=== PATIENT | female | born 1965 | race Hispanic/Latino ===

== ENCOUNTER 2018-03-03 11:00 | Outpatient (CLI) | payer MEDICAID | END 2018-03-03 11:01 | disposition home or self-care (01) | LOC: SLR 11:00 | PROVIDERS: ATTEND Otolaryngology | DX: G47.33 Obstructive sleep apnea (adult) (pediatric) (principal) | CPT/HCPCS: 95810 ==

== ENCOUNTER 2018-11-03 06:34 | Day surgery (SDC) | payer MEDICAID ==
--- NOTE | 2018-11-03 07:25 | Anesthesia Consultation ---
Anesthesia Consult and Med Hx Date of service: 11/03/18 - Airway Anesthetic Teeth Evaluation: Poor (multiple missing teeth) ROM Head & Neck: Adequate Mental/Hyoid Distance: Adequate Mallampati Class: Class III Intubation Access Assessment: Possibly Difficult - Pre-Operative Health Status ASA Pre-Surgery Classification: ASA3 Proposed Anesthetic Plan: MAC - Pulmonary Hx Smoking: Yes (former smoker 10 p/year history) Hx Respiratory Symptoms: Yes (chronic bronchitis) Hx Sleep Apnea: Yes - Cardiovascular System Hx Hypertension: Yes - Central Nervous System Hx Back Pain: Yes - Other Systems Hx Obesity: Yes (BMI 71.1)
--- NOTE | 2018-11-03 07:26 | Anesthesia Day of Surgery ---
Anesthesia Day of Surgery - Day of Surgery Patient Examined: Yes Patient H&P Reviewed: Yes Patient is NPO: Yes
[2018-11-03] MEDS ORDERED: WATER FOR IRRIG STERILE IR ONE (07:31)
[2018-11-03] MEDS ORDERED: NACL 0.9% 1000 ML 1,000 ML IV SCH (08:00)
[2018-11-03] MEDS ORDERED: DIPRIVAN 10 MG/ML IV ONE (08:07)
[2018-11-03 08:59] VITALS: BP 114/72
--- NOTE | 2018-11-03 11:16 | Operative Report ---
PREOPERATIVE DIAGNOSIS: Morbid obesity. POSTOPERATIVE DIAGNOSIS: Retained food products. PROCEDURE: Incomplete EGD. ANESTHESIA: MAC. BLEEDING: None. SPECIMENS: None. COMPLICATIONS: Retained food products obscuring view and causing inability for complete EGD. INDICATIONS: The patient is a 53-year-old female with history of morbid obesity. She is here for a preoperative EGD in preparation for a sleeve. Informed consent was obtained. DESCRIPTION OF PROCEDURE: The patient was brought to the GI suite where she was placed in the left lateral decubitus position and underwent MAC anesthesia. A bite block was placed and a timeout was called. A standard adult Olympus endoscope was inserted through the oropharynx, down the esophagus, into the stomach. On entry, there was a significant amount of retained food products. There was a significant amount of food products along the lesser and greater curve of the stomach as well as the fundus and completely obscuring the pylorus. I was not able to intubate the pylorus. Due to the obstructed view, the air was desufflated and the gastroscope was removed. The patient tolerated the procedure with no immediate complications and then transferred to the PACU in stable condition. FINDINGS: Incomplete EGD due to obstructed view from retained food products. The patient will have to be strict n.p.o. after midnight and adhere to clear liquid diet 2 days prior in order to proceed with surgery. JOB# [id number] YUMIKO/TERRELL MAYNARD
== END 2018-11-03 06:35 | disposition home or self-care (01) ==
LOC: GIO 06:34
PROVIDERS: ATTEND Specialist
DX: K30 Functional dyspepsia (principal); E66.01 Morbid (severe) obesity due to excess calories; I10 Essential (primary) hypertension; G47.30 Sleep apnea, unspecified; Z68.45 Body mass index [BMI] 70 or greater, adult; Z98.51 Tubal ligation status; Z98.890 Other specified postprocedural states; Z88.2 Allergy status to sulfonamides; Z91.040 Latex allergy status; Z79.899 Other long term (current) drug therapy; Z87.891 Personal history of nicotine dependence; Z88.8 Allergy status to other drugs, medicaments and biological substances
CPT/HCPCS: 43235; J2704; J7030

== ENCOUNTER 2018-12-01 06:34 | Day surgery (SDC) | payer MEDICAID ==
--- NOTE | 2018-12-01 08:05 | Anesthesia Day of Surgery ---
Anesthesia Day of Surgery - Day of Surgery Patient Examined: Yes Patient H&P Reviewed: Yes Patient is NPO: Yes
--- NOTE | 2018-12-01 08:10 | Anesthesia Consultation ---
Anesthesia Consult and Med Hx Date of service: 12/01/18 - Airway Anesthetic Teeth Evaluation: Good ROM Head & Neck: Adequate Mental/Hyoid Distance: Adequate Mallampati Class: Class I Intubation Access Assessment: Good - Pre-Operative Health Status ASA Pre-Surgery Classification: ASA3 Proposed Anesthetic Plan: MAC - Pulmonary Hx Smoking: Yes (former smoker 10 p/year history) Hx Respiratory Symptoms: Yes (chronic bronchitis) Hx Sleep Apnea: Yes - Cardiovascular System Hx Hypertension: Yes Hx Coronary Artery Disease: No (NST 3 mos ago and OK per pt) - Central Nervous System Hx Back Pain: Yes Hx Psychiatric Problems: Yes (Dysthymic D/O) - Gastrointestinal Hx Ulcer: No (Crohn's Disease) - Hematic Hx Anemia: Yes - Other Systems Hx Obesity: Yes (BMI 71.1)
[2018-12-01] MEDS ORDERED: VERSED ONE (08:42)
[2018-12-01] MEDS ORDERED: DIPRIVAN 10 MG/ML IV ONE (08:43)
[2018-12-01] MEDS ORDERED: NACL 0.9% 1000 ML 1,000 ML IV SCH (09:00)
[2018-12-01 11:38] VITALS: BP 122/76
--- NOTE | 2018-12-01 13:23 | Operative Report ---
SURGEON: Darnell Briseno M.D. HEATER OPERATOR: Alessio Blount MD PREOPERATIVE DIAGNOSIS: Morbid obesity. POSTOPERATIVE DIAGNOSES: 1. Small hiatal hernia, 3 cm. 2. Bilious reflux. PROCEDURE: Esophagogastroduodenoscopy. ANESTHESIA: MAC. COMPLICATIONS: None. SPECIMENS: None. BLEEDING: None. INDICATIONS: The patient is a 53-year-old female with a history of morbid obesity. She is here for preoperative EGD in preparation for her weight loss surgery. Informed consent was obtained. DESCRIPTION OF PROCEDURE: The patient was brought to the GI suite where she was placed in the left lateral decubitus position and underwent MAC anesthesia. A bite block was placed and a timeout was called. A standard adult gastroscope was inserted into the oropharynx, down the esophagus, into the stomach. Upon entry, there was noted bilious reflux up to the incisura. On intubation of the pylorus, there was again bilious reflux or bile seen. No other abnormalities. On retroflexion view, she was noted to have a small hiatal hernia approximately 2-3 cm in size. There were no other abnormalities. With that, the air was suctioned out. The gastroscope was removed. The patient tolerated the procedure with no immediate complications and was transferred to the PACU in stable condition. JOB# [id number] YUMIKO/TERRELL
== END 2018-12-01 06:35 | disposition home or self-care (01) ==
LOC: GIO 06:34
PROVIDERS: ATTEND Specialist
DX: K21.9 Gastro-esophageal reflux disease without esophagitis (principal); K44.9 Diaphragmatic hernia without obstruction or gangrene; K30 Functional dyspepsia; E66.01 Morbid (severe) obesity due to excess calories; I25.10 Atherosclerotic heart disease of native coronary artery without angina pectoris; G47.30 Sleep apnea, unspecified; Z88.2 Allergy status to sulfonamides; Z91.040 Latex allergy status; Z98.51 Tubal ligation status; Z79.899 Other long term (current) drug therapy; Z87.891 Personal history of nicotine dependence; Z86.2 Personal history of diseases of the blood and blood-forming organs and certain disorders involving the immune mechanism; Z98.890 Other specified postprocedural states
CPT/HCPCS: 43235; J2250; J2704; J7030

== ENCOUNTER 2019-04-07 11:00 | Outpatient (CLI) | payer MEDICARE | END 2019-04-07 11:01 | disposition home or self-care (01) | LOC: SLR 11:00 | PROVIDERS: ATTEND Otolaryngology | DX: G47.30 Sleep apnea, unspecified (principal) | CPT/HCPCS: 95810 ==

== ENCOUNTER 2019-04-12 11:00 | Outpatient (CLI) | payer MEDICARE | END 2019-04-12 11:01 | disposition home or self-care (01) | LOC: SLR 11:00 | PROVIDERS: ATTEND Otolaryngology | DX: G47.33 Obstructive sleep apnea (adult) (pediatric) (principal); I10 Essential (primary) hypertension; Z87.891 Personal history of nicotine dependence; Z98.51 Tubal ligation status | CPT/HCPCS: 95811 ==

== ENCOUNTER 2019-05-07 21:16 | Emergency (ER) | payer MEDICARE ==
[2019-05-07 21:51] VITALS: BP 157/95
--- NOTE | 2019-05-07 21:59 | Event Note ---
ED Screening Note Date of service: 05/07/19 ED Screening Note: This initial assessment/diagnostic orders/clinical plan/treatment(s) is/are subject to change based on patients health status, clinical progression and re- assessment by fellow clinical providers in the ED. Further treatment and workup at subsequent clinical providers discretion. Patient/guardian urged not to elope from the ED as their condition may be serious if not clinically assessed and managed. Initial orders include: 54yo WF states that she has R knee pain x1 week.
[2019-05-07] MEDS ORDERED: CYCLOBENZAPRINE 10 MG TAB PO ONE (23:16)
--- NOTE | 2019-05-07 23:47 | Emergency Department Report ---
ED Extremity Problem HPI - General Chief complaint: Extremity Injury, Lower Stated complaint: RT LEG DIFF WALKING W/LUMP Time Seen by Provider: 05/07/19 23:11 Source: patient Mode of arrival: Ambulatory Limitations: No Limitations - History of Present Illness Initial comments: Patient is a 54-year-old female presents emergency room with complaints of right lower extremity edema that began a week ago. She states that she noticed a knot to the right calf that began 2 days ago. Patient states that she has pain in her calf and it feels like a tightness and spasming. She states it feels like a "charley horse." She denies any fall or injury. She denies any increased warmth, drainage, erythema. She denies ever having this in the past. She has a past medical history of hypertension. She states she had a gastric sleeve performed 3 weeks ago. She states she has an allergy to latex and sulfa. - Related Data Home Medications Medication Instructions Recorded Confirmed Last Taken Lisinopril 5 mg PO DAILY 11/03/18 12/01/18 11/30/18 Potassium 1 tab PO DAILY 12/01/18 12/01/18 11/30/18 Previous Rx's Medication Instructions Recorded Last Taken Type Apixaban [Eliquis] 10 mg PO BID #12 tablet 05/08/19 Unknown Rx HYDROcodone/APAP 5-325 [[place] 1 each PO Q6HR PRN #12 tablet 05/08/19 Unknown Rx 5/325] Allergies Allergy/AdvReac Type Severity Reaction Status Date / Time latex AdvReac Rash Verified 11/03/18 07:33 Sulfa (Sulfonamide AdvReac Rash Verified 11/03/18 07:33 Antibiotics) ED Review of Systems ROS: Stated complaint: RT LEG DIFF WALKING W/LUMP Other details as noted in HPI Comment: All other systems reviewed and negative ED Past Medical Hx - Past Medical History Previous Medical History?: Yes Hx Hypertension: Yes Additional medical history: Obesity - Surgical History Past Surgical History?: No Additional Surgical History: Gastric sleeve, Tubal Ligation - Social History Smoking Status: Former Smoker Substance Use Type: Alcohol - Medications Home Medications: Home Medications Medication Instructions Recorded Confirmed Last Taken Type Lisinopril 5 mg PO DAILY 11/03/18 12/01/18 11/30/18 History Potassium 1 tab PO DAILY 12/01/18 12/01/18 11/30/18 History Apixaban [Eliquis] 10 mg PO BID #12 tablet 05/08/19 Unknown Rx HYDROcodone/APAP 5-325 [[place] 1 each PO Q6HR PRN #12 tablet 05/08/19 Unknown Rx 5/325] ED Physical Exam - General Limitations: No Limitations General appearance: alert, in no apparent distress - Head Head exam: Present: atraumatic, normocephalic - Eye Eye exam: Present: normal appearance - ENT ENT exam: Present: mucous membranes moist - Extremities Exam Extremities exam: Present: other (edema present to the RLE from below the knee to the ankle, there is increased swelling present on the right medial calf, TTP of the right calf, neurovascularly intact, FROM of the RLE, no increased warmth, no drainage, no erythema) - Neurological Exam Neurological exam: Present: alert, oriented X3 - Psychiatric Psychiatric exam: Present: normal affect, normal mood - Skin Skin exam: Present: warm, dry, intact ED Course Vital Signs 05/07/19 21:33 Temperature 97.9 F Pulse Rate 87 Respiratory 16 Rate Blood Pressure 157/95 O2 Sat by Pulse 95 Oximetry ED Medical Decision Making - Lab Data Result diagrams: 05/07/19 23:26 05/07/19 23:26 Lab Results 05/07/19 05/07/19 05/07/19 Range/Units 23:26 23:26 23:26 WBC 7.0 (4.5-11.0) K/mm3 RBC 4.64 (3.65-5.03) M/mm3 Hgb 13.6 (10.1-14.3) gm/dl Hct 42.2 (30.3-42.9) % MCV 91 (79-97) fl MCH 29 (28-32) pg MCHC 32 (30-34) % RDW 15.3 H (13.2-15.2) % Plt Count 268 (140-440) K/mm3 Lymph % (Auto) 25.7 (13.4-35.0) % Nash % (Auto) 11.3 H (0.0-7.3) % Eos % (Auto) 5.1 H (0.0-4.3) % Baso % (Auto) 0.4 (0.0-1.8) % Lymph # 1.8 (1.2-5.4) K/mm3 Nash # 0.8 (0.0-0.8) K/mm3 Eos # 0.4 (0.0-0.4) K/mm3 Baso # 0.0 (0.0-0.1) K/mm3 Seg Neutrophils % 57.5 (40.0-70.0) % Seg Neutrophils # 4.0 (1.8-7.7) K/mm3 PT 12.9 (12.2-14.9) Sec. INR 0.98 (0.87-1.13) APTT 29.0 (24.2-36.6) Sec. Sodium 140 (137-145) mmol/L Potassium 4.7 (3.6-5.0) mmol/L Chloride 96.8 L (98-107) mmol/L Carbon Dioxide 25 (22-30) mmol/L Anion Gap 23 mmol/L BUN 51 H (7-17) mg/dL Creatinine 2.6 H (0.7-1.2) mg/dL Estimated GFR 19 ml/min BUN/Creatinine Ratio 20 % Glucose 103 H (65-100) mg/dL Calcium 10.0 (8.4-10.2) mg/dL - Medical Decision Making Patient is a 54-year-old female presents emergency room with complaints of right lower extremity edema that began a week ago. She states that she noticed a knot to the right calf that began 2 days ago. Patient states that she has pain in her calf and it feels like a tightness and spasming. She states it feels like a "charley horse." She denies any fall or injury. She denies any increased warmth, drainage, erythema. She denies ever having this in the past. She has a past medical history of hypertension. She states she had a gastric sleeve performed [address] Briseno. her pcp is at [facility]. She states she has an allergy to latex and sulfa. vitals are stable. labs are significant for CAR with Cr of 2.6. pt denies any prior hx of CKD or kidney issues. states she had pre op labs prior to her surgery and denies any issues. states she has not been drinking very much fluid. on exam: edema present to the RLE from below the knee to the ankle, there is increased swelling present on the right medial calf, TTP of the right calf, neurovascularly intact, FROM of the RLE, no increased warmth, no drainage, no erythema. examination concerning for DVT, does not appear consistent with cellulitis. There is not a vascular x ray technologist this hospital tonight. Will place patient on eliquis. Advised patient that she would need to stay in the hospital due to CAR. Patient declines staying in the hospital and is going to sign out AMA. Dr. Lantigua discussed AMA form with patient. The patient is alert and oriented 3. The patient exhibits decision-making capacity. The patient is free from distracting injury. The risk of leaving without a complete medical examination, and AGAINST MEDICAL ADVICE, were explained to the patient, and they included , disability, paralysis, permanent loss of quality of life. The patient verbalized understanding to these and was able to articulate these risks in their own words. Patient given a prescription for 3 days worth of eliquis and given eliquis prescription savings card. Patient given a prescription to return for a Doppler ultrasound of the right lower extremity. advised pt Please take medication as prescribed. Please increase your fluid intake significantly over the next several days. Please follow-up with your primary care doctor as soon as possible or return to the emergency room. you are leaving today against medical advice, risks include , permanent disability, loss of quality of life. please go to the vascular ultrasound lab on friday (05/10/19) to have your ultrasound completed. return to the emergency room immediately for any new or worsening symptoms. - Differential Diagnosis DVT, cellulitis, PVD, bakers cyst, varicose veins, vasculitis Critical care attestation.: If time is entered above; I have spent that time in minutes in the direct care of this critically ill patient, excluding procedure time. ED Disposition Clinical Impression: CAR (acute kidney injury), Right leg swelling Disposition: [id number] LEFT AGAINST MED ADVICE Is pt being admited?: No Does the pt Need Aspirin: No Condition: Undetermined Instructions: Deep Venous Thrombosis (ED), Leg Edema (ED) Additional Instructions: Please take medication as prescribed. Please increase your fluid intake significantly over the next several days. Please follow-up with your primary care doctor as soon as possible or return to the emergency room. you are leaving today against medical advice, risks include , permanent disability, loss of quality of life. please go to the vascular ultrasound lab on friday (05/10/19) to have your ultrasound completed. return to the emergency room immediately for any new or worsening symptoms. Prescriptions: Apixaban [Eliquis] 10 mg PO BID #12 tablet HYDROcodone/APAP 5-325 [R[place]land 5/325] 1 each PO Q6HR PRN #12 tablet PRN Reason: Pain Referrals: LOLITA BELTRÁN MD [Primary Care Provider] - 3-5 Days Forms: AMA Form Time of Disposition: 00:17 Print Language: [place] CITIZEN
[2019-05-07 23:56] LABS: INR 0.98 (0.87-1.13)
[2019-05-08] MEDS ORDERED: SODIUM CHLORIDE 0.9% 1000 ML 1,000 ML IV ONE (00:13)
[2019-05-08 00:19] LABS: Basophils % (Auto) 0.4 % (0.0-1.8); Eosinophils # (Auto) 0.4 K/mm3 (0.0-0.4); Eosinophils % (Auto) 5.1 % (0.0-4.3); Hematocrit 42.2 % (30.3-42.9); Hemoglobin 13.6 gm/dl (10.1-14.3); Lymphocytes # (Auto) 1.8 K/mm3 (1.2-5.4); Lymphocytes % (Auto) 25.7 % (13.4-35.0); Mean Corpuscular HGB Conc 32 % (30-34); Mean Corpuscular Volume 91 fl (79-97); Monocytes # (Auto) 0.8 K/mm3 (0.0-0.8); Monocytes % (Auto) 11.3 % (0.0-7.3); Platelet Count 268 K/mm3 (140-440); Red Blood Count 4.64 M/mm3 (3.65-5.03); Red Cell Distribution Width 15.3 % (13.2-15.2)
--- NOTE | 2019-05-08 00:20 | Event Note ---
Face to Face: For this encounter I have reviewed the PA/BUSINESS INSURANCE AGENT documentation, treatment plan, medical decision making, and I had face to face time with this patient. I evaluated Mrs. Guajardo. I agree with my colleague's suspicion for right lower extremity DVT. I recommended Eliquis therapy. She will receive a prescription for 3 days of a Eliquis 10 mg twice a day. Upon review of labs obtained, BUN/creatinine elevated prerenal injury pattern. I'm concerned for decrease oral intake with recent gastric sleeve surgery. I strongly suggested admission for IV fluid therapy. She understands that her kidney function is well below normal. Mrs. Guajardo insisted on home by mouth hydration. She is leaving AGAINST MEDICAL ADVICE. This conversation was witnessed by treatment nurse who is also the charge nurse for this evening. She politely declined hospitalization. She verbalized understanding of the risks of further kidney injury and dehydration. She understands to return on Friday for ultrasound of the right lower extremity.
[2019-05-08] MEDS ORDERED: APIXABAN 5 MG TAB PO ONE (23:19)
== END 2019-05-08 00:32 | disposition left against medical advice (07) ==
LOC: ED 21:16
DX: R22.41 Localized swelling, mass and lump, right lower limb (principal); N17.9 Acute kidney failure, unspecified; I10 Essential (primary) hypertension; Z98.51 Tubal ligation status; Z87.891 Personal history of nicotine dependence; Z79.899 Other long term (current) drug therapy; Z88.2 Allergy status to sulfonamides; Z91.040 Latex allergy status
CPT/HCPCS: 36415; 80048; 85025; 85610; 85730